=== PATIENT | male | born 1990 | race African-American/Black ===

== ENCOUNTER 2017-09-24 09:54 | Emergency (ER) | payer OTHER ==
[~2017-09-24] VITALS: Ht 175.3 cm; Wt 68.0 kg
[~2017-09-24 09:54] MED LIST: ACETAMINOPHEN-1 EAC1 PO; AZITHROMYCIN 2250 MG PO; MEDROLDOSEPACK PO; NOHOMEMEDICATIONS; PHENERGAN 25 MG25 MG PO; PROAIR HFA8.5 GM INH; TRIAMCINOLONE A15 G1 TP; ULTRAM50 MG PO; XANAX 0.25 MG0.25 MG PO
[2017-09-24] MEDS ORDERED: ACETAMINOPHEN-1 EAC1 PO (10:27)
[2017-09-24] MEDS ORDERED: CIPROFLOXIN HC2.5 M1 OTIC (10:27)
[2017-09-24] MEDS ORDERED: CLEOCIN HCL150 MG PO (10:27)
[2017-09-24 10:31] LABS: INFLUENZA A ANTIGEN None Detected (None Detect); INFLUENZA B ANTIGEN None Detected (None Detect)
[2017-09-24 10:47] VITALS: BP 119/74
== END 2017-09-24 10:48 | disposition home or self-care (01) ==
LOC: M.ERS 09:54
PROVIDERS: Emergency Medicine
DX: H60.311 Diffuse otitis externa, right ear (principal); Z98.890 Other specified postprocedural states; F10.99 Alcohol use, unspecified with unspecified alcohol-induced disorder

== ENCOUNTER 2018-04-28 12:49 | Emergency (ER) | payer OTHER ==
[~2018-04-28] VITALS: Ht 172.7 cm; Wt 72.6 kg
[~2018-04-28 12:49] MED LIST changes: +CIPROFLOXIN HC2.5 M1 OTIC; +CLEOCIN HCL150 MG PO
[2018-04-28 13:35] LABS: ABSOLUTE EOSINOPHILS 0.1 thou/uL (0.0-0.7); ABSOLUTE LYMPHOCYTES 1.2 thou/uL (0.8-5.3); ABSOLUTE MONOCYTES 0.4 thou/uL (0.0-1.2); BASOPHILS 0.5 %; EOSINOPHILS 2.2 %; HEMATOCRIT 47.3 % (42.0-52.0); HEMOGLOBIN 15.4 gm/dL (14.0-18.0); LYMPHOCYTES 25.4 %; MCH 26.7 pg (26.0-34.0); MCHC 32.7 g/dL (28.0-37.0); MCV 81.7 fL (80.0-100.0); MONOCYTES 8.8 %; MPV 8.5 fl. (7.2-11.1); NUCLEATED RBCS 0 /100WBC; PLATELET COUNT* 223 thou/uL (150-400); POLYS 63.1 %; RBC 5.78 mil/uL (4.50-6.00); RDW-CV 14.9 % (10.5-14.5); WBC 4.7 thou/uL (4.0-11.0)
[2018-04-28 13:50] LABS: CALCIUM 8.9 mg/dL (8.5-10.1); POTASSIUM 4.1 mmol/L (3.5-5.1)
[2018-04-28 14:02] LABS: URINE BILIRUBIN NEGATIVE (Negative); URINE BLOOD TRACE (Negative); URINE CLARITY CLEAR; URINE COLOR YELLOW; URINE GLUCOSE-RANDOM NEGATIVE (Negative); URINE KETONES NEGATIVE (Negative); URINE LEUKOCYTES-REFLEX NEGATIVE (Negative); URINE NITRITE-REFLEX NEGATIVE (Negative); URINE PROTEIN NEGATIVE (Negative); URINE UROBILINOGEN 0.2 E.U./dl (0.2-1.0)
[2018-04-28] MEDS ORDERED: PROTONIX 20 MG20 MG PO (14:28)
[2018-04-28 14:33] VITALS: BP 107/66
== END 2018-04-28 14:34 | disposition home or self-care (01) ==
LOC: M.ERS 12:49
PROVIDERS: Nurse Practitioner
DX: K62.89 Other specified diseases of anus and rectum (principal)

== ENCOUNTER 2019-06-06 13:47 | Emergency (ER) | payer OTHER ==
[~2019-06-06] VITALS: Ht 175.3 cm; Wt 79.4 kg
[~2019-06-06 13:47] MED LIST changes: +PROTONIX 20 MG20 MG PO
[2019-06-06] MEDS ORDERED: NORCO 5-325 TA1 EAC1 PO (14:27)
[2019-06-06] MEDS ORDERED: KEFLEX500 M1 PO (14:27)
[2019-06-06] MEDS ORDERED: CIPROFLOXIN HC2.5 M1 OTIC (14:27)
[2019-06-06 14:55] VITALS: BP 140/83
== END 2019-06-06 14:55 | disposition home or self-care (01) ==
LOC: M.ERS 13:47
DX: H60.92 Unspecified otitis externa, left ear (principal); H66.92 Otitis media, unspecified, left ear; K04.7 Periapical abscess without sinus; H61.21 Impacted cerumen, right ear

== ENCOUNTER 2020-05-26 00:53 | Emergency (ER) | payer OTHER ==
[~2020-05-26] VITALS: Ht 175.3 cm; Wt 81.7 kg
[~2020-05-26 00:53] MED LIST changes: +KEFLEX500 M1 PO; +NORCO 5-325 TA1 EAC1 PO
[2020-05-26 02:54] LABS: ABSOLUTE BASOPHILS 0.1 thou/uL (0.0-0.2); ABSOLUTE EOSINOPHILS 0.3 thou/uL (0.0-0.7); ABSOLUTE MONOCYTES 0.8 thou/uL (0.0-1.2); ABSOLUTE NEUTROPHILS 3.6 thou/uL (1.6-8.1); BASOPHILS 0.9 %; EOSINOPHILS 3.8 %; HEMATOCRIT 44.7 % (42.0-52.0); HEMOGLOBIN 15.1 gm/dL (14.0-18.0); LYMPHOCYTES 29.7 %; MCH 27.1 pg (26.0-34.0); MCHC 33.8 g/dL (28.0-37.0); MCV 80.4 fL (80.0-100.0); MONOCYTES 11.8 %; NUCLEATED RBCS 0 /100WBC; PLATELET COUNT* 228 thou/uL (150-400); POLYS 53.8 %; RBC 5.56 mil/uL (4.50-6.00); RDW-CV 14.3 % (10.5-14.5); WBC 6.7 thou/uL (4.0-11.0)
[2020-05-26 03:04] LABS: POTASSIUM 3.9 mmol/L (3.5-5.1)
[2020-05-26 03:17] LABS: TOTAL BILIRUBIN 0.3 mg/dL (<0.1-1.0); TOTAL PROTEIN 7.6 g/dL (6.4-8.2)
[2020-05-26] MEDS ORDERED: TORADOL 10 MG T10 MG PO (03:57)
[2020-05-26] MEDS ORDERED: ACETAMINOPHEN-1 EAC2 PO (03:57)
[2020-05-26] MEDS ORDERED: CYCLOBENZAPRINE5 MG PO (03:57)
[2020-05-26 04:05] VITALS: BP 114/57
--- NOTE | 2020-05-27 14:56 | EKG ---
[place] [address] ELECTROCARDIOGRAM REPORT Name: NOREEN BHATT Room: 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: CT : 1990 Requested By: Мария Maya Order Number: [id number] [place] MD: Luke Stubbs Measurements Intervals [place] Rate: 77 P: 44 MT: 171 QRS: 52 QRSD: 84 T: 11 QT: 342 QTc: 387 Interpretive Statements Sinus rhythm Baseline wander in lead(s) II,III,aVR,aVF,V1,V2,V3,V4,V5,V6 Compared to ECG 10/17/2014 23:34:49 Sinus arrhythmia no longer present ST (T wave) deviation no longer present Electronically Signed On 05-27-2020 14:55:59 CDT by Luke Stubbs [email or web address] <ELECTRONICALLY SIGNED> By: Luke Stubbs MD, [facility] 05/27/20 1455 0 0 Luke Stubbs MD, [facility] /EPI
== END 2020-05-26 04:07 | disposition home or self-care (01) ==
LOC: M.ERS 00:53
PROVIDERS: Personal Emergency Response Attendant
DX: M25.512 Pain in left shoulder (principal); R42 Dizziness and giddiness; R51 Headache